=== PATIENT | male | born 1955 | race Caucasian/White ===

== ENCOUNTER 2020-05-18 03:15 | Emergency (ER) | payer MEDICAID ==
[~2020-05-18] VITALS: Ht 175.3 cm; Wt 86.2 kg
[2020-05-18 03:18] VITALS: BP 158/66
--- NOTE | 2020-05-18 03:18 | NUR ---
PT TAKEN TO CHAIR C
--- NOTE | 2020-05-18 03:26 | NUR ---
DR. EARL BEDSIDE EVALUATING PT
[2020-05-18] MEDS ORDERED: NACL 0.9% 1,000 ML IV ONE (03:30)
[2020-05-18] MEDS ORDERED: KETOROLAC 30 MG/ML VIAL IVP ONE (03:30)
--- NOTE | 2020-05-18 03:35 | NUR ---
64 Y/O MALE BIB [facility] FROM [employer] WITH C/O LLQ PAIN S/P INGESTION OF 6 HOT DOGS, A BAG OF CHIPS, SODA, AND 6 COOKIES. 08/21 PAIN. X 2.5 HRS. LBM: 05/17/20. DENIES NAUSEA, VOMITING, SOB. PT WAS TESTED FOR COVID X 1 MONTH AGO WITH NEG RESULTS. NO COUGH, SNEEZE, OR COLD SX NOTED. VSS, R/R EQUAL, AND UNLABORED. SIDE RAIL X1, BED IN LOW POSITIN, WILL CONTINUE TO MONITOR. ALLERGY: SULFA DRUGS PMH: GALLSTONES
[2020-05-18 03:53] LABS: APPEARANCE,URINE CLEAR (CLEAR); BILIRUBIN,URINE NEGATIVE (NEGATIVE); BLOOD, URINE TRACE-I (NEGATIVE); COLOR,URINE YELLOW (YELLOW); LEUKOCYTE ESTERASE ,URINE NEGATIVE (NEGATIVE); NITRITE, URINE NEGATIVE (NEGATIVE); PH,URINE 5.5 (5.0-9.0); UGLUCOSE NEGATIVE (NEGATIVE)
[2020-05-18 03:54] LABS: BASOPHILS # (AUTO) 0.1 K/uL (0.00-0.22); BASOPHILS % (AUTO) 1.2 % (0.0-2.0); EOSINOPHILS # (AUTO) 0.5 K/uL (0-0.4); EOSINOPHILS % (AUTO) 8.3 % (0.0-4.0); HEMATOCRIT 43.6 % (36-52); HEMOGLOBIN 14.5 g/dL (12.0-18.0); LYMPHOCYTES # (AUTO) 1.2 K/uL (2.0-11.5); LYMPHOCYTES % (AUTO) 22.3 % (20.5-51.1); MEAN CORPUSCULAR HEMOGLOBIN 31 pg (27-31); MEAN CORPUSCULAR HGB CONC 33 g/dL (33-37); MEAN CORPUSCULAR VOLUME 92.1 fL (80-94); MONOCYTES # (AUTO) 0.4 K/uL (0.8-1.0); MONOCYTES % (AUTO) 6.6 % (1.7-9.3); NEUTROPHILS # (AUTO) 3.4 K/uL (1.8-7.7); NEUTROPHILS % (AUTO) 61.6 % (42.2-75.2); PLATELET COUNT (AUTO) 214 K/uL (140-450); RED BLOOD CELL COUNT(AUTO) 4.73 MIL/uL (4.20-6.10); RED CELL DISTRIBUTION WIDTH 14.1 % (11.6-13.7); WHITE BLOOD COUNT (AUTO) 5.5 K/uL (4.8-10.8)
[2020-05-18 04:07] LABS: RBC,URINE 0-5 /HPF (0-5); WBC,URINE 0-5 /HPF (0-5)
[2020-05-18 04:14] LABS: ALBUMIN 3.6 g/dL (3.4-5.0); CARBON DIOXIDE 27.2 mmol/L (21-32); CREATININE 1.3 mg/dL (0.6-1.3); POTASSIUM 4.2 mmol/L (3.5-5.1); TOTAL BILIRUBIN 0.3 mg/dL (0.0-1.0)
--- NOTE | 2020-05-18 04:51 | NUR ---
IV removed, catheter intact and site benign. Applied folded 4x4 gauze and tape to stop bleeding.
--- NOTE | 2020-05-18 04:51 | NUR ---
Patient discharged with v/s stable. Written and verbal after care instructions given and explained. Patient verbalized understanding. Ambulatory with steady gait. All questions addressed prior to discharge. Advised to follow up with PMD.
[2020-05-18 04:52] VITALS: BP 147/71
== END 2020-05-18 04:51 | disposition home or self-care (01) ==
LOC: MED 03:15
DX: K30 Functional dyspepsia (principal); R10.9 Unspecified abdominal pain
CPT/HCPCS: 36415; 74176; 80053; 81001; 82150; 83690; 85025; 96374; 99284; J1885; J7030

== ENCOUNTER 2023-08-08 08:09 | Emergency (ER) | payer MEDICARE, MEDICAID ==
[~2023-08-08] VITALS: Ht 175.3 cm; Wt 89.8 kg
[2023-08-08 08:29] VITALS: BP 121/72; PULSE 110; RESP 18; TEMP 98.7; O2SAT 97
[2023-08-08] MEDS ORDERED: ACETAMINOPHEN EXTRA STRENGTH 500 MG TAB PO ONE (08:45)
[2023-08-08] MEDS ORDERED: ACET-10509 PO (10:03)
[2023-08-08 10:20] VITALS: BP 120/75; PULSE 88; RESP 18; TEMP 98; O2SAT 99
== END 2023-08-08 10:20 | disposition home or self-care (01) ==
LOC: MED 08:09
DX: S10.83XA Contusion of other specified part of neck, initial encounter (principal); S00.83XA Contusion of other part of head, initial encounter; Y08.89XA Assault by other specified means, initial encounter; Y93.89 Activity, other specified; Y92.89 Other specified places as the place of occurrence of the external cause; Y99.8 Other external cause status
CPT/HCPCS: 70450; 72125; 99284

== ENCOUNTER 2024-05-02 11:18 | Emergency (ER) | payer MEDICARE, MEDICAID ==
[~2024-05-02] VITALS: Ht 175.3 cm; Wt 83.9 kg
[~2024-05-02 11:18] MED LIST: ACET-10509 PO
[2024-05-02 11:27] VITALS: BP 142/94; PULSE 86; RESP 22; TEMP 97; O2SAT 96
[2024-05-02 12:18] LABS: BASOPHILS % (AUTO) 0.4 % (0.0-2.0); EOSINOPHILS # (AUTO) 0.3 K/uL (0-0.4); EOSINOPHILS % (AUTO) 2.8 % (0.0-4.0); HEMATOCRIT 39.4 % (36-52); HEMOGLOBIN 13.3 g/dL (12.0-18.0); LYMPHOCYTES # (AUTO) 1.3 K/uL (2.0-11.5); MEAN CORPUSCULAR HEMOGLOBIN 30 pg (27-31); MEAN CORPUSCULAR HGB CONC 34 g/dL (33-37); MEAN CORPUSCULAR VOLUME 89.9 fL (80-94); MONOCYTES # (AUTO) 0.5 K/uL (0.8-1.0); MONOCYTES % (AUTO) 5.3 % (1.7-9.3); NEUTROPHILS # (AUTO) 7.8 K/uL (1.8-7.7); NEUTROPHILS % (AUTO) 78.5 % (42.2-75.2); PLATELET COUNT (AUTO) 334 K/uL (140-450); RED BLOOD CELL COUNT(AUTO) 4.38 MIL/uL (4.20-6.10); RED CELL DISTRIBUTION WIDTH 14.5 % (11.6-13.7); WHITE BLOOD COUNT (AUTO) 9.9 K/uL (4.8-10.8)
[2024-05-02] MEDS: ALBUTEROL SULFATE/IPRATROPIU 3 ML SOL IH ONE ×2 (12:29→13:23)
[2024-05-02 12:30] VITALS: PULSE 81; RESP 22; O2SAT 94
[2024-05-02 12:48] LABS: ANION GAP 13.1 (8-16); CALCIUM 8.9 mg/dL (8.5-10.1); CARBON DIOXIDE 28.2 mmol/L (21-32); CREATININE 1.2 mg/dL (0.6-1.3); POTASSIUM 5.3 mmol/L (3.5-5.1)
[2024-05-02 12:51] LABS: ALANINE AMINOTRANSFERASE 13 U/L (12-78); ALBUMIN 3.7 g/dL (3.4-5.0); ALKALINE PHOSPHATASE 85 U/L (50-136); ASPARTATE AMINOTRANSFERASE 26 U/L (15-37); BILIRUBIN,DIRECT 0.1 mg/dL (0.0-0.3); TOTAL BILIRUBIN 0.4 mg/dL (0.0-1.0); TOTAL PROTEIN, SERUM 7.7 g/dL (6.4-8.2)
[2024-05-02 13:23] VITALS: PULSE 82; RESP 20; O2SAT 92
[2024-05-02 13:36] VITALS: TEMP 97.7
[2024-05-02] MEDS: NACL 0.9% 1,000 ML IV ONE (13:47)
[2024-05-02] MEDS: methylPREDNISolone SS 125 MG/2 ML VIAL IVP ONE (13:50)
[2024-05-02] MEDS: MAG SULF 2000 MG/WATER PREMIX 50 ML IV ONE (13:56)
[2024-05-02] MEDS: OLANZapine 5 MG ODT SL ONE (14:52)
[2024-05-02] MEDS ORDERED: PRED20TA5 PO (15:02)
[2024-05-02] MEDS ORDERED: ALBU0.0912 IH (15:02)
[2024-05-02] MEDS ORDERED: ACET-10509 PO (15:02)
[2024-05-02 15:11] VITALS: BP 148/79; PULSE 87; RESP 16; O2SAT 96
== END 2024-05-02 15:15 | disposition home or self-care (01) ==
LOC: MED 11:18
DX: S00.03XA Contusion of scalp, initial encounter (principal); J45.901 Unspecified asthma with (acute) exacerbation; Z79.899 Other long term (current) drug therapy; Z88.2 Allergy status to sulfonamides; W22.8XXA Striking against or struck by other objects, initial encounter; Y92.89 Other specified places as the place of occurrence of the external cause; Y93.89 Activity, other specified; Y99.8 Other external cause status
CPT/HCPCS: 36415; 70450; 71045; 72125; 80048; 80076; 83880; 84484; 85025; 93005; 94640; 96365; 96366; 96375; 99285; J2919; J3475; J7030